=== PATIENT | female | born 1985 | race Caucasian/White ===

== ENCOUNTER 2017-02-19 11:03 | Emergency (ER) | payer OTHER ==
[~2017-02-19] VITALS: Ht 165.1 cm; Wt 132.1 kg
[~2017-02-19 11:03] MED LIST: AMOXICILLIN500 M1 PO; BACTRIM,SEPT1 TABLET PO; CITALOPRAM HBR20 M1 PO; CLONAZEPAM0.5 MG PO; CLONAZEPAM1 MG PO; CYCLOBENZAPRINE5 MG PO; CYMBALTA60 MG PO; DESYREL100 MG PO; DICLOFENAC SODI75 MG PO; HYDROXYZINE PAM25 MG PO; KLONOPIN0.5 M1 PO; LAMICTAL ODT25 MG PO; LAMICTAL XR250 MG PO; LAMICTAL200 MG PO; LAMICTAL25 MG PO; LATUDA20 MG PO; MOTRIN600 MG PO; MUCINEX600 MG PO; NAPROXEN500 MG PO; OMEPRAZOLE20 M2 PO; PRENATAL PLUS1 EAC3 PO; RANITIDINE HCL150 MG PO; RANITIDINE HCL75 MG PO; TRAMADOL HCL50 MG PO; TYLENOL WITH C1 EACH PO
[2017-02-19] MEDS ORDERED: MOTRIN800 MG PO (13:08)
[2017-02-19 13:16] VITALS: BP 139/98
== END 2017-02-19 13:11 | disposition home or self-care (01) ==
LOC: EME 11:03
DX: S80.12XA Contusion of left lower leg, initial encounter (principal); S93.402A Sprain of unspecified ligament of left ankle, initial encounter; W10.8XXA Fall (on) (from) other stairs and steps, initial encounter; Y92.26 Movie house or cinema as the place of occurrence of the external cause; Z87.891 Personal history of nicotine dependence
CPT/HCPCS: 99281; 99284

== ENCOUNTER 2017-08-25 19:49 | Emergency (ER) | payer OTHER ==
[~2017-08-25] VITALS: Ht 165.1 cm; Wt 127.0 kg
[~2017-08-25 19:49] MED LIST changes: +MOTRIN800 MG PO
[2017-08-25 21:07] VITALS: BP 148/90
== END 2017-08-25 21:11 | disposition home or self-care (01) ==
LOC: EME 19:49
DX: F32.9 Major depressive disorder, single episode, unspecified (principal); S50.812A Abrasion of left forearm, initial encounter; X78.9XXA Intentional self-harm by unspecified sharp object, initial encounter; F41.9 Anxiety disorder, unspecified; Z87.891 Personal history of nicotine dependence
CPT/HCPCS: 90837; 99281; 99285